=== PATIENT | female | born 1970 | race African-American/Black ===

== ENCOUNTER 2021-12-10 08:22 | Day surgery (SDC) | payer OTHER ==
[2021-12-10] VITALS (133 sets, daily range): BP systolic 84–185; BP diastolic 44–109
[~2021-12-10] VITALS: Ht 170.2 cm; Wt 114.0 kg
--- NOTE | 2021-12-10 07:34 | NUR ---
PATIENT ARRIVED ON THE UNIT. AMBULAROTY TO ROOM. AOX3. CONSENT OBTAINED. VS OBTAINED. DR. KING NOTIFIED. NO ORDERS RECEIVED. ADMISSION ASSESSMENT CMPLETED. IV ESTABLISHED. ORIENTED PATIENT TO ROOM AND UNIT. CALL LIGHT WITHIN REACH. PATIENT ADVISED TO CLL WITH ANY NEEDS. PATIENT VERBALIZED UNDERSTANDING
[2021-12-10 08:44] LABS: HEMATOCRIT 39.4 % (37.0-47.0); IMMATURE GRANULOCYTES 0.1 % (0.0-5.0); MEAN CELL VOLUME 86.6 fL CALC (80.0-100.0); MEAN CORPUSCULAR HGB 26.4 pG CALC (26.0-32.0); MEAN CORPUSCULAR HGB CONC 30.5 g/dL CAL (32.0-36.0); NEUT# 4.43 thou/uL (2.00-7.15); RED BLOOD COUNT 4.55 mill/uL (4.20-5.60); RED CELL DISTRI WIDTH 15.8 % (11.5-15.5)
[2021-12-10 08:54] LABS: ALKALINE PHOSPHATASE 84 u/l (38-126); ANION GAP 11 (6-22 (CALC)); BILIRUBIN, TOTAL 0.2 mg/dL (0.0-1.4); BUN 11 mg/dL (7-17); BUN/CREATININE RATIO 16 (12-20 (CALC)); CARBON DIOXIDE 27 mmol/l (22-30); CHLORIDE 108 mmol/l (95-108); CREATININE 0.7 mg/dL (0.5-1.0); GFR > 60 ML/MIN (>=60 (CALC)); GFR FOR AFR.AMER. > 60 ML/MIN (>=60 (CALC)); POTASSIUM 4.2 mmol/l (3.5-5.1); SGOT/AST 27 u/l (14-36); SODIUM 142 mmol/l (137-146); TOTAL PROTEIN 7.6 g/dL (6.3-8.2)
--- NOTE | 2021-12-10 11:40 | NUR ---
Induction Note Patient to [facility] procedure room. Time out performed at 1140. Patient placed on monitors, Bakari hugger, bilateral wrist restraints applied for ET tube protection. Versed 5mg given IV push at 1141 Tourniquet applied to LEFT arm Lidocaine 100mg given at 1142 IV push followed by Rocoronium 10mg at 1143 IV push and held for 90 seconds. Propofol bolus of 120mg given at 1144 IV push. Succinylcholine 80mg given IV push at 1145 . Smooth intubation with 7.5 ETT. Positive CO2. Positive Auscultation for air exchange. Patient placed on ventilator for spontaneous ventilation. Placed on Propofol IV drip at 1150. OG inserted. Positive air on auscultation. Positive gastric content. Stomach washed at this time. Naltrexone 50mg given via OG tube with Clonidine 0.2mg given via OG Tube. OG clamped for 45 minutes. Will monitor patient for symptoms of withdrawal and adjust propfol accordingly.
--- NOTE | 2021-12-10 12:55 | NUR ---
OG open note OG open at this time. Gastric content draining into drainage bag. OG to drain for 45 minutes. Propofol will be titrated down based on patient.
--- NOTE | 2021-12-10 13:45 | NUR ---
OG close note Stomach washed at this time. Naltrexone 50mg with Clonidine 0.1mg via OG tube. OG will be clamped for 45 minutes.
--- NOTE | 2021-12-10 13:55 | NUR ---
Extubation note Closing medications given Benadryl 50mg IV push, Decadron 10mg IV push,Magnesium 4 grams IV, Zofran 8mg IV push, Octreotide 100mcg SC. Stomach washed out prior to extubation. Suctioned gastric content. OG removed. Patient extubated. Propofol Discontinued. Wrist restraints removed. Bakari hugger Removed. See ANR Moderate sedate recovery record for further notes and assessment.
--- NOTE | 2021-12-10 16:00 | NUR ---
PATIENT CAMEE BACK FROM PROCEDURE. PATIENT IS SLEEPING, PATIENT VITALS TAKEN AD STABLE. BED ALARM SET.
--- NOTE | 2021-12-10 16:45 | NUR ---
PATIENT TRANSPORTED TO [facility]. STABLE CONDITION. VSS. ON 15L O2 VIA NON REBREATHER. REPORT GIVEN TO NURSE
--- NOTE | 2021-12-10 20:00 | NUR ---
PT RESTING IN BED, NO SIGNS OF DISTRESS NOTED, RESP EVEN AND UNLABORED. PT HAS NONREBREATHER 15L SATS 97%. PT ABLE TO ANSWER QUESTIONS APPROPRIATELY, CAN VERBALIZE NEEDS. PT ALERT AND ORIENTED X2, DISCUSSED POC, VERBALIZED UNDERSTANDING. ASSESSMENT COMPLETED, CALL LIGHT IN REACH,CONTINUE TO MONITOR.
--- NOTE | 2021-12-10 20:45 | NUR ---
PT CALLED C/O HEADACHE, NOTIFIED AND ORDERS OBTAINED
--- NOTE | 2021-12-10 23:20 | NUR ---
PT RESTING IN BED WATCHING TV, PT MEDICATED PER MAR, CALL LIGHT IN REACH, CONTINUE TO MONITOR.
[2021-12-11 03:52] VITALS: BP 140/61
[2021-12-11 03:55] VITALS: BP 142/62
--- NOTE | 2021-12-11 04:15 | NUR ---
PT RESTING IN BED, C/O SLEEPLESSNESS AND AGITATION, PT MEDICATED PER MAR, NO SIGNS OF DISTRESS NOTED, RESP EVEN AND UNLABORED. CALL LIGHT IN REACH,CONTINUE TO MONITOR.
[2021-12-11 04:52] LABS: HEMATOCRIT 39.2 % (37.0-47.0); HEMOGLOBIN 12.1 g/dl (12.0-16.0); IMMATURE GRANULOCYTES 0.1 % (0.0-5.0); MEAN CELL VOLUME 86.5 fL CALC (80.0-100.0); MEAN CORPUSCULAR HGB 26.7 pG CALC (26.0-32.0); MEAN CORPUSCULAR HGB CONC 30.9 g/dL CAL (32.0-36.0); NEUT# 8.3 thou/uL (2.00-7.15); RED BLOOD COUNT 4.53 mill/uL (4.20-5.60); RED CELL DISTRI WIDTH 15.8 % (11.5-15.5)
[2021-12-11 05:14] LABS: ALKALINE PHOSPHATASE 85 u/l (38-126); ANION GAP 8 (6-22 (CALC)); BILIRUBIN, TOTAL 0.3 mg/dL (0.0-1.4); BUN 9 mg/dL (7-17); BUN/CREATININE RATIO 12 (12-20 (CALC)); CARBON DIOXIDE 30 mmol/l (22-30); CHLORIDE 107 mmol/l (95-108); CREATININE 0.8 mg/dL (0.5-1.0); GFR > 60 ML/MIN (>=60 (CALC)); GFR FOR AFR.AMER. > 60 ML/MIN (>=60 (CALC)); MAGNESIUM 2.4 mg/dL (1.6-2.3); POTASSIUM 4.9 mmol/l (3.5-5.1); SGOT/AST 26 u/l (14-36); SODIUM 140 mmol/l (137-146); TOTAL PROTEIN 7.7 g/dL (6.3-8.2)
[2021-12-11 06:45] VITALS: BP 142/68
--- NOTE | 2021-12-11 08:00 | NUR ---
PATIENT IS ASLEEP. NO SXS OF DISTRESS. BREATHING EVENLY. CALL LIGHT IN REACH OF PATIENT, BED ALARM ON
--- NOTE | 2021-12-11 12:00 | NUR ---
PATIENT SLEEPING, PATIENT DID EAT FOOD AND TOLERATED IT. PATIENT HAS NO SXS OF DISTRESS.
--- NOTE | 2021-12-11 16:06 | NUR ---
PATIENT IS AWAKE WITH FAMILY AT BEDSIDE. KATHARINE IS READY TO GO, SHE SHOWERED, TOOK HER MEDICATION AND IF FULLY DRESSED IVS REMOVED. AWAITING FOR ANR TO GIVE THE OK TO O HOME.
--- NOTE | 2021-12-11 16:30 | NUR ---
Discharge instructions given. Patient verbalizes understanding of same. Discharged in stable condition via Ambulatory to Home with family. All belongings sent with pt.
== END 2021-12-11 16:30 | disposition home or self-care (01) | DRG 897 ==
LOC: ANR 08:22 → MS2 08:22 → ANR 10:28
PROVIDERS: ATTEND Anesthesiology
DX: F11.20 Opioid dependence, uncomplicated (principal)
CPT/HCPCS: J2060; J2354